=== PATIENT | female | born 1990 | race African-American/Black ===

== ENCOUNTER 2016-06-16 22:04 | Emergency (ER) | payer OTHER ==
[~2016-06-16] VITALS: Ht 162.6 cm; Wt 106.1 kg
[~2016-06-16 22:04] MED LIST: NKM
[2016-06-16 22:29] VITALS: BP 111/60
[2016-06-16 22:40] LABS: KETONES,URINE NEGATIVE (NEGATIVE); LEUKOCYTE ESTERASE ,URINE 1+ (NEGATIVE); NITRITE,URINE POSITIVE (NEGATIVE); PH,URINE 6 (4.5-8.0); PROTEIN,URINE 1+ (NEGATIVE); UROBILINOGEN,URINE 1 MG/DL (0.0-1.0)
[2016-06-16 22:40] LABS: MEAN CORPUSCULAR HEMOGLOBIN 32.9 PG (27.0-31.0); MEAN CORPUSCULAR HGB CONC 35.2 G/DL (32.0-36.0); MEAN CORPUSCULAR VOLUME 93 FL (80-99); MEAN PLATELET VOLUME 7.7 FL (6.5-10.1); PLATELET COUNT 291 K/UL (150-450); RED BLOOD COUNT 4.56 M/UL (4.20-5.40); RED CELL DISTRIBUTION WIDTH 11.6 % (11.6-14.8)
[2016-06-16 22:46] LABS: APPEARANCE,URINE SLIGHTLY CLOUDY
[2016-06-16 22:57] LABS: BACTERIA,URINE FEW /HPF; SQUAMOUS EPITHELIAL CELL,UR FEW /LPF (NONE/OCC)
[2016-06-16 22:57] LABS: ALANINE AMINOTRANSFERASE 49 U/L (3-33); ALBUMIN/GLOBULIN RATIO 1.1 (1.0-2.7); ANION GAP 17 (5-15); ASPARTATE AMINO TRANSFERASE 27 U/L (5-40); CALCIUM 10.3 mg/dL (8.6-10.2); CARBON DIOXIDE 24 mEQ/L (20-30); CHLORIDE 94 mEQ/L (98-107); CREATININE 0.8 mg/dL (0.5-0.9); GLOMERULAR FILTRATION RATE > 60 mL/min (>60); HEMOLYSIS 8; LIPASE 17 U/L (< 60); POTASSIUM 4.1 mEQ/L (3.4-4.9); SODIUM 135 mEQ/L (135-145); TOTAL PROTEIN 8.1 g/dL (6.6-8.7)
[2016-06-16 22:58] LABS: PROTHROMBIN TIME 9.9 SEC (9.30-11.50)
[2016-06-16 23:08] LABS: BAND NEUTROPHILS % (MANUAL) 1 % (0-8); BASOPHILS % (MANUAL) 0 % (0-2); EOSINOPHILS % (MANUAL) 3 % (0-3); LYMPHOCYTES % (MANUAL) 27 % (20-45); NEUTROPHILS % (MANUAL) 65 % (45-75); PLATELET ESTIMATE ADEQUATE; PLATELET MORPHOLOGY NORMAL; TOTAL CELLS COUNTED 100
--- NOTE | 2016-06-17 00:49 | Emergency Room Report ---
History of Present Illness General Chief Complaint: Vaginal Source: Patient Present Illness HPI Patient presents with spotting - mainly last 2 days. Not certain last menses, but believes beginning of April. + home preg tests. Scheduled to go to [facility] this week. Passed one clot but now no blood on tissue. Minimal nausea. Minimal pain = suprapubic 5/10, more constant than crampy, not radiate. C/O smelly discharge. She's had itching on her arms. No noted rashes. No meds taken. No chills, fevers, cough, sore throat, joint pain. Allergies: Coded Allergies: PENICILLINS (Verified Allergy, Unknown, 06/16/16) Patient History Past Medical History: see triage record Social History: Reports: smoking - prior Social History Narrative unemployed Last Menstrual Period: april 2016 Now: Yes : 1 Para: 0 Reviewed Nursing Documentation: PMH: Agreed, PSxH: Agreed Nursing Documentation-PMH Past Medical History: No History, Except For Hx Hypertension: Yes Review of Systems All Other Systems: negative except mentioned in HPI Physical Exam Vital Signs Date Time Temp Pulse Resp B/P Pulse Ox O2 Delivery O2 Flow Rate FiO2 06/16/16 21:58 98.4 98 16 135/52 96 Sp02 EP Interpretation: reviewed, normal General Appearance: well appearing, no apparent distress, GCS 15 Head: normocephalic Eyes: bilateral eye PERRL, bilateral eye normal inspection ENT: moist mucus membranes Neck: supple Respiratory: lungs clear, normal breath sounds Cardiovascular #1: regular rate, rhythm Cardiovascular #2: 2+ radial (R) Gastrointestinal: normal inspection, normal bowel sounds, non tender, no mass, non-distended, overweight Genitourinary: ext genitalia/vag normal - with min blood, os closed, other - uterus slightly large, not tender, minimal blood - d/c Musculoskeletal: back normal, gait/station normal, normal range of motion Neurologic: alert, oriented x3, grossly normal Skin: normal inspection, warm/dry, other - sl redness R forearm Medical Decision Making Diagnostic Impression: Primary Impression: Threatened miscarriage Additional Impressions: Vaginitis Qualified Codes: N76.0 - Acute vaginitis Trichomonal infection Pruritis 7 weeks gestation of ER Course Patient with spotting and + home . Ddx: threatened miscarriage, miscarriage, ectopic, UTI, vaginitis amongst others. First preg, need eval with labs and U/S. Will treat with tylenol. U/S with sac. L cyst. Elevated WBC no left shift. Exam and labs not identify source. Exam against appi. O+. Quant 13,182. Sent samples for gc and chlamydia. + wet mount - indication for antibiotics. Discussed threatened miscarriage information with patient. Pain almost gone. Itching better. Stable for outpatient observation and treatment. Laboratory Tests Test 06/16/16 22:07 06/16/16 22:30 06/16/16 22:55 Urine Color Yellow Urine Appearance Slightly cloudy Urine pH 6 (4.5-8.0) Urine Specific [place] 1.020 (1.005-1.035) Urine Protein 1+ (NEGATIVE) H Urine Glucose (UA) Negative (NEGATIVE) Urine Ketones Negative (NEGATIVE) Urine Occult Blood 5+ (NEGATIVE) H Urine Nitrite Positive (NEGATIVE) H Urine Bilirubin Negative (NEGATIVE) Urine Urobilinogen 1 MG/DL (0.0-1.0) H Urine Leukocyte Esterase 1+ (NEGATIVE) H Urine RBC 5-10 /HPF (0 - 2) H Urine WBC 2-4 /HPF (0 - 2) Urine Squamous Epithelial Cells Few /LPF (NONE/OCC) Urine Bacteria Few /HPF (NONE) White Blood Count 19.0 K/UL (4.8-10.8) H Red Blood Count 4.56 M/UL (4.20-5.40) Hemoglobin 15.0 G/DL (12.0-16.0) Hematocrit 42.5 % (37.0-47.0) Mean Corpuscular Volume 93 FL (80-99) Mean Corpuscular Hemoglobin 32.9 PG (27.0-31.0) H Mean Corpuscular Hemoglobin Concent 35.2 G/DL (32.0-36.0) Red Cell Distribution Width 11.6 % (11.6-14.8) Platelet Count 291 K/UL (150-450) Mean Platelet Volume 7.7 FL (6.5-10.1) Neutrophils (%) (Auto) % (45.0-75.0) Lymphocytes (%) (Auto) % (20.0-45.0) Monocytes (%) (Auto) % (1.0-10.0) Eosinophils (%) (Auto) % (0.0-3.0) Basophils (%) (Auto) % (0.0-2.0) Differential Total Cells Counted 100 Neutrophils % (Manual) 65 % (45-75) Lymphocytes % (Manual) 27 % (20-45) Monocytes % (Manual) 4 % (1-10) Eosinophils % (Manual) 3 % (0-3) Basophils % (Manual) 0 % (0-2) Band Neutrophils 1 % (0-8) Platelet Estimate Adequate Platelet Morphology Normal Red Blood Cell Morphology Normal Prothrombin Time 9.9 SEC (9.30-11.50) Prothrombin Time INR 1.0 (0.9-1.1) PTT 30 SEC (23-33) Sodium Level 135 mEQ/L (135-145) Potassium Level 4.1 mEQ/L (3.4-4.9) Chloride Level 94 mEQ/L (98-107) L Carbon Dioxide Level 24 mEQ/L (20-30) Anion Gap 17 (5-15) H Blood Urea Nitrogen 16 mg/dL (7-23) Creatinine 0.8 mg/dL (0.5-0.9) Estimate Glomerular Filtration Rate > 60 mL/min (>60) Glucose Level 104 mg/dL (74-106) Calcium Level 10.3 mg/dL (8.6-10.2) H Total Bilirubin 0.3 mg/dL (0.0-1.2) Aspartate Amino Transferase (AST) 27 U/L (5-40) Alanine Aminotransferase (ALT) 49 U/L (3-33) H Alkaline Phosphatase 82 U/L (35-104) Total Protein 8.1 g/dL (6.6-8.7) Albumin 4.4 g/dL (3.5-5.2) Globulin 3.7 g/dL Albumin/Globulin Ratio 1.1 (1.0-2.7) Lipase 17 U/L (< 60) Human Chorionic Gonadotropin, Quant 33256 mIU/mL Chlamydia trachomatis RNA Pending Neisseria gonorrhoeae RNA Pending Microbiology Date/Time Source Procedure Growth Status 06/16/16 23:30 Vaginal Wet Prep - Final Complete CT/MRI/US Diagnostic Results CT/MRI/US Diagnostic Results : Imaging Test Ordered: u/s Impression Findings: There is evidence of an intrauterine . Yolk sac is identified. The mean sac diameter is too small to date. No pole is identified at this time. Correlation should be made with the quantitative beta-hCG without followup in 2 days. There is a simple cyst noted within the left ovary measuring 2 cm. Both ovaries show Doppler evidence of blood flow. Impression: Viability indeterminate intrauterine . may be too early to date. The other possibility is incomplete spontaneous . Clinical correlation recommende Last Vital Signs Date Time Temp Pulse Resp B/P Pulse Ox O2 Delivery O2 Flow Rate FiO2 06/16/16 22:29 98.4 67 20 111/60 100 Status: improved Condition: Improved Scripts Metronidazole* (FLAGYL*) 500 Mg Tablet 500 MG ORAL TID, #20 TAB Prov: Je Walden M.D. 06/17/16 Referrals: [facility],REFERRING (PCP) Je Walden M.D. June 17, 2016 00:49
[2016-06-17] MEDS ORDERED: METRONIDAZOLE500 MG ORAL (00:51)
[2016-06-17] MEDS ORDERED: metroNIDAZOLE 500mg tab ORAL ONE (01:00)
[2016-06-17 01:13] VITALS: BP 111/60
--- NOTE | 2016-06-17 09:11 | Diagnostic Imaging Report ---
Indication:Lower abdominal and pelvic pain Technique: Grayscale and duplex Doppler imaging of the pelvis performed utilizing a transabdominal scan and endovaginal scan. Comparison: None Findings: There is evidence of an intrauterine . Yolk sac is identified. The mean sac diameter is too small to date. No pole is identified at this time. Correlation should be made with the quantitative beta-hCG without followup in 2 days. There is a simple cyst noted within the left ovary measuring 2 cm. Both ovaries show Doppler evidence of blood flow. Impression: Viability indeterminate intrauterine . may be too early to date. The other possibility is incomplete spontaneous . Clinical correlation recommended.
== END 2016-06-17 01:20 | disposition home or self-care (01) ==
LOC: EDBD 22:04 → EMR 22:15
DX: O20.0 Threatened abortion (principal); Z3A.01 Less than 8 weeks gestation of pregnancy; N76.0 Acute vaginitis; A59.9 Trichomoniasis, unspecified; L29.9 Pruritus, unspecified; Z88.0 Allergy status to penicillin; F17.200 Nicotine dependence, unspecified, uncomplicated; R11.0 Nausea; I10 Essential (primary) hypertension
CPT/HCPCS: 36415; 58999; 76830; 76856; 80053; 81003; 83690; 84702; 85007; 85025; 85610; 85730; 86850; 86900; 86901; 87210; 87491; 87590; 96374